=== PATIENT | male | born 1985 | race Two or more races ===

== ENCOUNTER 2023-04-30 15:50 | Emergency (ER) | payer OTHER ==
[~2023-04-30] VITALS: Ht 177.8 cm; Wt 122.5 kg
[2023-04-30 19:22] LABS: HEMATOCRIT 41.2 % (39.0-48.0); HEMOGLOBIN 14.5 g/dL (13-16.00); MEAN CELL VOLUME 83.5 fL (80.0-100.00); MEAN CORPUSCULAR HEMOGLOBIN 29.5 pg (27.00-32.0); MEAN CORPUSCULAR HGB CONC 35.3 g/dl (32.0-36.0); PLATELET COUNT 287 K/uL (150-450); RED BLOOD COUNT 4.93 M/uL (4.00-6.00)
[2023-04-30 20:45] LABS: CREATININE SERUM 1.02 mg/dL (0.70-1.30); GFR 81.74; POTASSIUM 3.83 mEq/L (3.5-5.1)
== END 2023-04-30 21:30 | disposition home or self-care (01) ==
LOC: ER 15:50
PROVIDERS: General Practice
DX: I10 Essential (primary) hypertension (principal)

== ENCOUNTER 2025-01-25 22:57 | Emergency (ER) | payer OTHER ==
[~2025-01-25] VITALS: Ht 175.3 cm; Wt 90.7 kg
[2025-01-26] MEDS ORDERED: TETANUS & DIPHTHERIA TOX,ADULT 0.5 ML VIAL IM STA (00:44)
[2025-01-26] MEDS ORDERED: KETO10TA2 PO (01:51)
[2025-01-26] MEDS ORDERED: CEPHALEXIN500 MG PO (01:51)
== END 2025-01-26 01:54 ==
LOC: ER 23:27
DX: S61.112A Laceration without foreign body of left thumb with damage to nail, initial encounter (principal); W31.89XA Contact with other specified machinery, initial encounter; Y93.89 Activity, other specified; Y92.89 Other specified places as the place of occurrence of the external cause; Y99.9 Unspecified external cause status